=== PATIENT | female | born 1970 | race African-American/Black ===

== ENCOUNTER 2017-10-13 07:47 | Emergency (ER) | payer MEDICAID ==
[~2017-10-13] VITALS: Ht 170.2 cm; Wt 66.0 kg
[~2017-10-13 07:47] MED LIST: AMPI250C13 GT; BACL-141 MT; DOCU-138 MT; FE300LUD MT; KEPPSOL MT; LIP40 MT; METR500T4 MT
[2017-10-13] MEDS ORDERED: KETOROLAC 60MG/2ML VIAL IM ONE (08:45)
[2017-10-13 10:30] VITALS: BP 107/74
== END 2017-10-13 11:03 | disposition home or self-care (01) ==
LOC: ER 07:47
DX: I82.492 Acute embolism and thrombosis of other specified deep vein of left lower extremity (principal); R56.9 Unspecified convulsions; Z86.73 Personal history of transient ischemic attack (TIA), and cerebral infarction without residual deficits; Z79.899 Other long term (current) drug therapy
CPT/HCPCS: 96372; 99284; J1885; Z7610